=== PATIENT | female | born 1995 | race Caucasian/White ===

== ENCOUNTER 2025-06-02 01:52 | Outpatient (CLI) | payer MEDICAID, SELFPAY ==
--- NOTE | 2025-06-02 | DI.US_ITS ---
Exam(s) US OB 1ST TRIMESTER EXAM: US OB 1ST TRIMESTER CLINICAL HISTORY: Confirm dating of 2nd , Z34.80; -0-0-1. COMPARISON: No exams were available for comparison TECHNIQUE: Transabdominal first trimester obstetrical ultrasound performed. FINDINGS: Sonographic images demonstrate a single intrauterine gestation. A yolk sac and pole are seen. Sonographically assessed gestational age based upon crown-rump length of 2.5 cm is: 9 weeks 2 days Estimated date of delivery based on this ultrasound is: 03 January 2026 Estimated date of delivery based upon LMP: 03 January 2026 heart rate motion is Dopplered at: 175 bpm. No free fluid identified. Both ovaries appear sonographically normal. Pelvic Measurments Uterus: 11.0 x 6.6 x 8.7 cm Rt Ovary: 2.7 x 2.6 x 1.3 cm Lt Ovary: 3.7 by 2.1 x 3.2 cm, 1.7 centimeter corpus luteum cyst. IMPRESSION: Single live intrauterine gestation measuring 9 weeks 2 days. DATA REPOSITORY:
== END 2025-06-02 02:12 ==
PROVIDERS: Visit Provider Midwife
DX: Z34.01 Encounter for supervision of normal first pregnancy, first trimester (principal); Z3A.09 9 weeks gestation of pregnancy
CPT/HCPCS: 76801

== ENCOUNTER 2025-06-14 03:12 | Outpatient (CLI) | payer MEDICAID, SELFPAY ==
[2025-06-14 12:00] LABS: Abs Immature Grans 0.02 10^3/uL (0.0-0.06); HCT 38.4 % (36.0-46.0); HGB 12.5 g/dL (11.2-15.7); Immature Grans % 0.3 %; MCH 28.1 pg (27.0-33.0); MCHC 32.6 % (32.0-36.0); MCV 86 fL (80-95); MPV 8.6 fL (8.0-11.0); Platelet Count 239 10^3/uL (130-400); RBC 4.45 10^6/uL (3.93-5.22); RDW 13.9 % (11.7-14.6); RDW-SD 43.8 fL; WBC 7.36 10^3/uL (4.4-10.8)
[2025-06-14 12:19] LABS: Hemoglobin A1C 4.9 % (<5.7)
[2025-06-14 19:41] LABS: HIV-1/2 Ag & Ab Screen Negative (Negative)
[2025-06-14 19:43] LABS: Hepatitis C Ab w Rflx HCV PCR Negative (Negative)
[2025-06-15 10:03] LABS: Rubella IgG Ab (UVM) Positive (See Note)
[2025-06-16 19:58] LABS: Syphilis IgG w/Reflex Nonreactive (Nonreactive)
== END 2025-06-14 03:13 | disposition home or self-care (01) ==
LOC: LBO 03:12
PROVIDERS: Advanced Practice Midwife; Visit Provider Advanced Practice Midwife
DX: Z34.91 Encounter for supervision of normal pregnancy, unspecified, first trimester (principal)
CPT/HCPCS: 36415; 81220; 81222; 86787; 86803; 86850; 86900; 86901; 87340; 87389; 83036; 85025; 86762; 86780

== ENCOUNTER 2025-06-14 11:28 | Outpatient (REF) | payer MEDICAID, SELFPAY ==
[2025-06-15 12:14] LABS: Chlamydia Result Negative (Negative); GC Result Negative (Negative)
== END 2025-06-14 11:29 | disposition home or self-care (01) ==
LOC: LBN 11:28
PROVIDERS: Visit Provider Advanced Practice Midwife
DX: Z34.91 Encounter for supervision of normal pregnancy, unspecified, first trimester (principal)
CPT/HCPCS: 87491; 87591; 87086

== ENCOUNTER 2025-08-11 03:37 | Outpatient (CLI) | payer MEDICAID, SELFPAY ==
--- NOTE | 2025-08-11 07:15 | DI.US_ITS ---
Exam(s) US OB 2-3 TRIMESTER EXAM: US OB 2-3 TRIMESTER CLINICAL HISTORY: 19 wk survey,z34.90. TECHNIQUE: Transabdominal obstetrical ultrasound performed. COMPARISON: US US OB 1ST TRIMESTER from 06/02/2025 FINDINGS: Number of fetuses: 1 position: VARIED heart rate: 155bpm Placental location: There is a grade 1 anterior placenta. The placental tip is 3.1 cm from the internal os. No evidence of previa. Amniotic fluid index: Amount of fluid is within normal limits. ANATOMICAL SURVEY: Within normal limits. BIOMETRIC DATA: BPD: 4.6cm, 19weeks 6days HC: 18.08cm, 20weeks 3days AC: 14.96cm, 20weeks 1day FL: 3.01cm, 19weeks 2days Cisterna magna: 6.6mm Cerebellum: 1.99cm Lateral ventricle: 0.7 cm. EFW: 317.13g, 0.72lb, 78.4% Composite Age: 20weeks LUIS DANIEL: 12/29/2026 Heart Rate: 155bpm ANATOMICAL SURVEY: Four-chambered heart: Unremarkable. RVOT: Unremarkable. LVOT: Unremarkable. Left-sided stomach: Unremarkable. urinary bladder: Unremarkable. Bilateral kidneys: Unremarkable. Three-vessel cord: Unremarkable. Cord insertion: Unremarkable. Posterior fossa: Unremarkable. ventricles: Unremarkable. nose/lips: Unremarkable. Palate: Unremarkable. spine: Unremarkable. Two arms and two legs: Unremarkable. IMPRESSION: 1. Single live intrauterine gestation as above. 2. Normal anatomic survey. DATA REPOSITORY:
== END 2025-08-11 03:57 ==
LOC: DI 03:37
PROVIDERS: Visit Provider Advanced Practice Midwife
DX: Z34.92 Encounter for supervision of normal pregnancy, unspecified, second trimester (principal); Z3A.19 19 weeks gestation of pregnancy
CPT/HCPCS: 76805

== ENCOUNTER 2025-10-10 01:45 | Outpatient (CLI) | payer MEDICAID, SELFPAY ==
[2025-10-10 15:03] LABS: Abs Immature Grans 0.03 10^3/uL (0.0-0.06); HCT 33.1 % (36.0-46.0); HGB 10.8 g/dL (11.2-15.7); Immature Grans % 0.4 %; MCH 27.6 pg (27.0-33.0); MCHC 32.6 % (32.0-36.0); MCV 85 fL (80-95); MPV 8.8 fL (8.0-11.0); Platelet Count 201 10^3/uL (130-400); RBC 3.91 10^6/uL (3.93-5.22); RDW 12.3 % (11.7-14.6); RDW-SD 37.4 fL; WBC 7.61 10^3/uL (4.4-10.8)
[2025-10-10 15:38] LABS: Hemoglobin A1C 4.7 % (<5.7)
== END 2025-10-10 01:46 | disposition home or self-care (01) ==
LOC: LBO 01:45
PROVIDERS: Advanced Practice Midwife; Visit Provider Advanced Practice Midwife
DX: Z34.91 Encounter for supervision of normal pregnancy, unspecified, first trimester
CPT/HCPCS: 36415; 83036; 85025